=== PATIENT | female | born 1945 | race Caucasian/White ===

== ENCOUNTER 2016-12-07 10:49 | Inpatient (IN) | payer MEDICARE ==
[~2016-12-07 10:49] MED LIST: ACETAMINOPHEN 1000MG/100 ML PREMIX IV ONE; BUPIVACAINE 0.25% W/EPI MPF 30ML VIAL IVP ONE; BUPIVACAINE LIPOSOME 266MG/20ML VIAL IV ONE; CELECOXIB 100 MG CAPSULE PO ONE; FAMOTIDINE 20MG TABLET PO ONE; MECLIZINE 25 MG TABLET PO ONE; METOCLOPRAMIDE 10 MG TABLET PO ONE; TRANEXAMIC ACID 1,000 MG/10 ML ML IV ONE; VANCOMYCIN HCL 1 GM VIAL IVPB ONE; VANCOMYCIN HCL 1,000 MG in 0.9 % SODIUM CHLORIDE 250ML 250 ML IVPB ONE
[2016-12-07 11:56] LABS: ABO GROUP A; ANTIBODY SCREEN NEGATIVE (NEGATIVE); RH TYPE POSITIVE
[2016-12-07] MEDS ORDERED: DIPHENHYDRAMINE HCL IV 50 MG/ML VIAL IVP ONE (14:00)
[2016-12-07] MEDS ORDERED: EPHEDRINE SULFATE 50 MG/ML ML IV ONE (14:00)
[2016-12-07] MEDS ORDERED: FENTANYL PF 100MCG/2ML VIAL IV ONE (14:00)
[2016-12-07] MEDS ORDERED: KETOROLAC 30 MG/ML VIAL IVP ONE (14:00)
[2016-12-07] MEDS ORDERED: MIDAZOLAM HCL 2MG/2ML VIAL IV ONE (14:00)
[2016-12-07] MEDS ORDERED: TRANEXAMIC ACID 1,000 MG/10 ML ML IV ONE (14:00)
[2016-12-07] MEDS ORDERED: PROPOFOL 10 MG/ML VIAL IV ONE (14:00)
[2016-12-07] MEDS ORDERED: ZOLPIDEM TARTRATE 5 MG TABLET PO PRN (15:15)
[2016-12-07] MEDS ORDERED: MAGNESIUM HYDROXIDE 30 ML UDC PO PRN (15:17)
[2016-12-07] MEDS ORDERED: BISACODYL 10 MG SUPP RC PRN (15:20)
[2016-12-07] MEDS ORDERED: AL HYDROX/MAG HYDROX 30ML UD PO PRN (15:24)
[2016-12-07] MEDS ORDERED: METOCLOPRAMIDE HCL 10 MG/2 ML VIAL IVP PRN (15:28)
[2016-12-07] MEDS ORDERED: ONDANSETRON HCL IV 4 MG/2 ML VIAL IVP PRN (15:29)
[2016-12-07] MEDS ORDERED: DEXTROSE 5 % AND 0.9 % NACL 1,000 ML IV SCH (15:30)
[2016-12-07] MEDS ORDERED: ACETAMINOPHEN/CODEINE TABLET PO PRN ×2 (15:32→15:33)
[2016-12-07] MEDS ORDERED: HYDROCODONE/APAP 5/325MG TABLET PO PRN (15:34)
[2016-12-07] MEDS ORDERED: KETOROLAC 30 MG/ML VIAL IVP PRN ×2 (15:37→15:39)
[2016-12-07] MEDS ORDERED: TRAMADOL HCL 50 MG TABLET PO PRN ×2 (15:40→15:42)
[2016-12-07] MEDS ORDERED: ACETAMINOPHEN 325 MG TAB PO PRN (15:44)
[2016-12-07] MEDS ORDERED: MORPHINE SULFATE 5 MG/ML PFS IVP PRN ×3 (15:53→15:55)
[2016-12-07] MEDS: MORPHINE SULFATE 5 MG/ML PFS IVP PRN ×2 (16:04→21:18)
--- NOTE | 2016-12-07 18:24 | Rehab Evaluation ---
Patient Information - Patient Information Diagnosis: Left Knee Arthrosis Ordered Treatment: PT Evaluate and Treat Status: Initial Evaluation Surgery: Yes (L TKA ) Date of Surgery: 12/07/16 History: Detail (Pt. reports history of degenerative change at the left knee, with similar findings regarding the contralateral LE.) Past Med/Elsie Hx Detail: Detail (Pt. does not report relevant orthopedic surgeries prior to TKA.) Past Medical/Surgical Hx: PAST MEDICAL/SURGICAL HISTORY Past Surgical History c scopes c section d and c's x's 3 laparoscopy left big toe surgery left lumpectomy 2006 malignant PMH - Respiratory Hx Respiratory Disorders Yes Hx Bronchitis Yes: just recovering from this Hx Pneumonia Yes: 23 years ago Hx of URI Yes: bronchitis Hx of Productive Cough Yes: only occassonally now PMH - Cardiovascular Hx Cardiovascular Disorders No Exercise Tolerance Good PMH - Neuro Hx Neurological Disorders No PMH - GI Hx Gastrointestinal Disorders Yes PMH - Hx Genitourinary Disorders No Hx Age of Menopause 57 PMH - Endocrine Hx Endocrine Disorders No PMH - Musculoskeletal Hx Musculoskeletal Disorders Yes Hx Arthritis Yes Hx Osteoporosis Yes PMH - Psych Hx Psychiatric Problems Yes Hx Anxiety Yes: regarding surgery PMH - Hematology/Oncology Hx Hematology/Oncology Yes Disorders Hx Cancer Yes: left breast Hx Chemotherapy Yes: in clinical study for 5 years post surgery Hx Radiation Therapy Yes Premorbid Status: Detail (Slowly progressive worsening of sx.) Social History: Detail (Pt. resides in a single story home with one step leading in. Pt. has all aspects of daily living located on the first floor; pt. has a standard bath tub with bench and grab bar. Pt. reports that she will not have to ascend/descend a flight of stairs at the home environment or when attending OP PT in [place], [place].) Precautions: [place], Fall - Time With Patient Total Time Spent With Patient (Min): 60 Treatment Procedures: Detail (Physical Therapy Evaluation Completed. Pt. was left supine with call light available, B IPC, cryo LLE, and nursing was notified of pt.'s status. Pt. was instructed to perform ankle pumps, SLR, quad sets, and glut sets while supine. Pt. remained at 97% O2 from start to finish of evaluation and did not complain of SOB/nausea.) Subjective Information - Subjective Information Per Patient (Pt. reported 3/10 pain at commencement of tx and ended with 2/10 pain via VAS. Pt. denied SOB/nausea throughout evaluation.) Objective Data - Pain Pain Present: Yes Pain Intensity: 2 Pain Scale Used: Numeric (1 - 10) - Mental Status Patient Orientation: Oriented x3 - Visual Perception Appears within normal limits for therapeutic activities - ROM Other (Standardized ROM testing not performed due to recent surgery and dressings. RLE within functional limits. BUE within functional limits.) - Strength/Tone Other (Break testing not performed for left knee flexion and extension. Pt. performed I SLR with LLE and did not report increased pain. RLE 5/5 grossly. BUE 5/5 grossly. L ankle plantarflexion and dorsiflexion 5/5 break testing.) - Coordination Appears within normal limits for therapeutic activities - Bed Mobility Needs Assist (Pt. required min assist x1 with supine<->seated transfer and positioning of the operative LE. Pt. exhibited excellent UE strength and understanding needed to reposition herself in bed.) - Transfers Needs Assist (Pt. required min assist x1 and verbal cueing to appropriately place the involved LE during sit to stand and stand to sit transfer. Pt. maintained quadricep control with uninvolved LE during descent from standing to seated position.) - Balance Balance Sitting: Good (Pt. maintained midline orientation while seated at bedside.) Balance Standing: Fair (Pt. maintained midline orientation while standing at bedside, but deviated when cued to increase BW bore onto involved LE.) - Sensation Intact (Pt. was found appropriate when asked to verbalize therapist's palpation to digit testing and when testing proprioceptive and kinesthetic awareness.) - Gait Detail (Pt. ambulated with front wheeled walker and demonstrated good understanding of LE placement without signs of pivoting; pt. appropriately extended her involved LE with swing phase.) - ADL's/IADL's Detail (Pt. required min assist x2 with bathroom transfer and was successful with void attempt.) - Special Tests No Therapy Assessment - Therapy Assessment Detail (Pt. exhibits LE weakness, ROM deficits, balance impairment, and assistance with transfers. Pt. is expected to pass inpatient PT goals and transition to PT services in [place].) Patient Education - Patient Education Teaching Topic: Disease Process, Equipment Use, Exercise/Activity, Precautions, Risk Factors Response: Return Demonstration Teaching Method: Discussion, Demonstration Teaching Recipient: Patient, Family Barriers To Learning: None Problem List - Problem List Physical Therapy Problem List: Detail (1) LE weakness 2) ROM deficit 3) Balance impairment 4) Assistance with bed mobility and transfer) Goals - Goals Physical Therapy Goals: 1) Pt. will independently ambulate with front wheeled walker for 50 feet or more without gait deviation for safe and efficient ambulation. 2) Pt. will be independent with HEP. 3) Pt. will demonstrated good understanding and be independent with bed mobility and transfers. 4) Pt. will exhibit good standing and seated balance without deviation from midline for safe ADL and transfers. Prognosis - Prognosis Good (Pt. is expected to complete all inpatient PT goals.) Plan - Plan Physical Therapy Plan: Pt. will be seen 1-2x per day for inpatient PT starting on 12-07-16.
[2016-12-07] MEDS: DEXTROSE 5 % AND 0.9 % NACL 1,000 ML IV PRN (19:01)
[2016-12-07] MEDS: FERROUS SULFATE 325 MG TAB PO SCH (22:56)
[2016-12-07] MEDS: DOCUSATE SODIUM 100 MG CAPSULE PO SCH (22:56)
[2016-12-08] MEDS: VANCOMYCIN HCL 1,000 MG in 0.9 % SODIUM CHLORIDE 250ML 250 ML IVPB SCH ×2 (00:16→12:12)
[2016-12-08] MEDS: HYDROCODONE/APAP 5/325MG TABLET PO PRN ×4 (00:57→14:33)
[2016-12-08] MEDS: DEXTROSE 5 % AND 0.9 % NACL 1,000 ML IV PRN (05:31)
[2016-12-08 06:16] LABS: HEMATOCRIT 32.9 % (35.0-47.0); HEMOGLOBIN 10.6 gm/dl (11.6-16.0)
[2016-12-08] MEDS ORDERED: RIVAROXABAN 10 MG TABLET PO SCH (10:00)
[2016-12-08] MEDS: FERROUS SULFATE 325 MG TAB PO SCH (10:10)
[2016-12-08] MEDS: DOCUSATE SODIUM 100 MG CAPSULE PO SCH (10:11)
--- NOTE | 2016-12-08 10:37 | Rehab Evaluation ---
Patient Information - Patient Information Diagnosis: Left Knee Arthrosis Ordered Treatment: OT Evaluate and Treat Status: Initial Evaluation Surgery: Yes (L TKA ) Date of Surgery: 12/07/16 History: Detail (Pt. reports history of degenerative change at the left knee, with similar findings regarding the contralateral LE.) Past Med/Elsie Hx Detail: Detail (Pt. does not report relevant orthopedic surgeries prior to TKA.) Past Medical/Surgical Hx: PAST MEDICAL/SURGICAL HISTORY Past Surgical History c scopes c section d and c's x's 3 laparoscopy left big toe surgery left lumpectomy 2007 malignant PMH - Respiratory Hx Respiratory Disorders Yes Hx Bronchitis Yes: just recovering from this Hx Pneumonia Yes: 23 years ago Hx of URI Yes: bronchitis Hx of Productive Cough Yes: only occassonally now PMH - Cardiovascular Hx Cardiovascular Disorders No Exercise Tolerance Good PMH - Neuro Hx Neurological Disorders No PMH - GI Hx Gastrointestinal Disorders Yes PMH - Hx Genitourinary Disorders No Hx Age of Menopause 57 PMH - Endocrine Hx Endocrine Disorders No PMH - Musculoskeletal Hx Musculoskeletal Disorders Yes Hx Arthritis Yes Hx Osteoporosis Yes PMH - Psych Hx Psychiatric Problems Yes Hx Anxiety Yes: regarding surgery PMH - Hematology/Oncology Hx Hematology/Oncology Yes Disorders Hx Cancer Yes: left breast Hx Chemotherapy Yes: in clinical study for 5 years post surgery Hx Radiation Therapy Yes Premorbid Status: Detail (Slowly progressive worsening of sx.) Social History: Detail (Pt. resides with spouse in a single story home with one step and one hand railing leading in. She has a walk out basement but does not use it often. Pt. has all aspects of daily living located on the first floor; pt. has a standard bath tub with bench and grab bar. Pt. reports that she will not have to ascend/descend a flight of stairs at the home environment or when attending OP PT in [place], [place]. Prior to surgery she was Ind with all ADLs/ IADLs and reports her spouse is able to assist as needed after her return home. She has a sock aid and a shoe horn if needed.) Precautions: [place], Fall - Time With Patient Total Time Spent With Patient (Min): 40 Treatment Procedures: Detail (OT eval low complexity) Subjective Information - Subjective Information Per Patient Objective Data - Pain Pain Present: Yes (11/27 left knee) - Mental Status Patient Orientation: Oriented x3 - Visual Perception Appears within normal limits for therapeutic activities - ROM Within normal limits (Price UE AROM WNL) - Strength/Tone Within normal limits (Price UE MMT WNL) - Coordination Appears within normal limits for therapeutic activities - Bed Mobility Independent (Ind with supine to sit) - Transfers Independent (Ind with sit to stand with walker) - Balance Balance Sitting: Good Balance Standing: Good - Sensation Intact - Gait Detail (Amb in hallway with 2 wheeled walker and SBA) - ADL's/IADL's Detail (Pt reports she is Ind with toileting, nursing has been assisting with dressing.) Therapy Assessment - Therapy Assessment Detail (Reviewed adaptive equipment options and home OT if needed. Pt feels she will not require further OT as spouse is available to assist as needed.) Problem List - Problem List Physical Therapy Problem List: Detail (1) LE weakness 2) ROM deficit 3) Balance impairment 4) Assistance with bed mobility and transfer) Occupational Therapy Problem List: Detail (No specific OT problems identified at this time.) Goals - Goals Physical Therapy Goals: 1) Pt. will independently ambulate with front wheeled walker for 50 feet or more without gait deviation for safe and efficient ambulation. 2) Pt. will be independent with HEP. 3) Pt. will demonstrated good understanding and be independent with bed mobility and transfers. 4) Pt. will exhibit good standing and seated balance without deviation from midline for safe ADL and transfers. Occupational Therapy Goals: No OT goals identified at this time. Prognosis - Prognosis Good Plan - Plan Physical Therapy Plan: Pt. will be seen 1-2x per day for inpatient PT starting on 12-07-16. Occupational Therapy Plan: OT eval completed, no further needs identified at this time.
--- NOTE | 2016-12-08 10:50 | Physical Therapy Tx Note ---
Physical Therapy Tx Note - Treatment Note Tolerated: Good Total Time Spent With Patient: 30 Physical Therapy Tx Note: Detail (The patient had complaints of L knee pain level 3 . The patient was independent with supine to and from sit transfer, hooking R LE under L. The patient was independent with sit to and from stand transfer. The patient ambulated with wheeled walker WBAT on the L LE independently a distance of 65 feet x1. The patient completed the following exercises: seated heel slides, supine heel slides, SLR, ankle pumps , quad sets , gluteal sets and SAQ all x 5 - 8 reps. The patient had complaints of a "hot flash" during exercises. The patient's L knee AROM was measured as flexion 55 degrees seated and extension -12 degrees seated. The patient is progressing well.) Physical Therapy Problem List: Detail (1) LE weakness 2) ROM deficit 3) Balance impairment 4) Assistance with bed mobility and transfer) Physical Therapy Goals: 1) Pt. will independently ambulate with front wheeled walker for 50 feet or more without gait deviation for safe and efficient ambulation. 2) Pt. will be independent with HEP. 3) Pt. will demonstrated good understanding and be independent with bed mobility and transfers. 4) Pt. will exhibit good standing and seated balance without deviation from midline for safe ADL and transfers. Prognosis: Good Physical Therapy Plan: Pt. will be seen 1-2x per day for inpatient PT starting on 12-07-16.
--- NOTE | 2016-12-08 15:40 | Physical Therapy Tx Note ---
Physical Therapy Tx Note - Treatment Note Tolerated: Good (Patient doing extremely well with mobility and gait: worked on bending knee more and pushing off with foot, good weightbearing. Stairs were not difficult for this patient at all.) Total Time Spent With Patient: 25 Physical Therapy Tx Note: Detail (Patient seen in room, up on her way to bathroom with FWW when entered room and patient independent in the bathroom. Ambulated with FWW 50 feet in rincon to stairs, down stairs with CGA only, patient using rail and folded FWW safely, ambulated back up steps then 100 more feet down rincon with FWW with some discomfort in knee. Back to room and sat up in chair to perform exercises with good technique: believe she was able to flex knee 80 degrees. Back into bed independently then therapist re-attached cryocuff and compressive cuffs. Brought patient some gingerale as she was a little nauseated after all activity.) Physical Therapy Problem List: Detail (1) LE weakness 2) ROM deficit 3) Balance impairment 4) Assistance with bed mobility and transfer) Physical Therapy Goals: 1) Pt. will independently ambulate with front wheeled walker for 50 feet or more without gait deviation for safe and efficient ambulation. 2) Pt. will be independent with HEP. 3) Pt. will demonstrated good understanding and be independent with bed mobility and transfers. 4) Pt. will exhibit good standing and seated balance without deviation from midline for safe ADL and transfers. Prognosis: Good (Patient has passed all skills and feels she could go home if the doctor agrees. PT agrees as long as pain controlled.) Physical Therapy Plan: Pt. will be seen 1-2x per day for inpatient PT starting on 12-07-16.
--- NOTE | 2016-12-17 13:42 | Operative Note ---
DATE OF SURGERY: 12/07/2016 PREOPERATIVE DIAGNOSIS: Left knee arthrosis POSTOPERATIVE DIAGNOSIS: Left knee arthrosis. OPERATION: Left total knee arthroplasty. SURGEON: Kirit Ordoñez M.D. Anesthesia: Spinal. Complications: None. Blood Loss: Minimal. Tourniquet Time: 56 minutes. Findings: [id number] medial compartment and patellofemoral compartment arthrosis. Components Placed: 1 gram vancomycin cement, [employer] Journey II Oxinium total knee arthroplasty system size 5 femoral component, size 4 tibial baseplate , a 9-mm thick poly insert, and a 32-mm cemented patella component. INDICATIONS FOR OPERATION: This is a 71-year-old female who is well known to myself. Her is status post [employer] Oxinium knee arthroplasty done years ago, and he wished to have the same thing for his . I explained all risks and benefits in detail for diagnosis and procedures, including but not limited to, infection, nerve injury, vascular injury, persistent pain, numbness and tingling in the knee, periprosthetic fracture, need for resection of arthroplasty should the components become infected or loosened, nerve inury vessel injury, blood clot, amputation, and need for further procedures, need for anticoagulation to prevent blood clot and the risks associated with these medications. All of her questions were answered. The rehabilitation and healing course were outlined. PROCEDURE: Patient placed in the supine position. After spinal anesthesia was induced, the left lower extremity was prepped and draped in sterile fashion. Left knee was prepped again with ChloraPrep after it was draped. Intraoperative time out was performed. The leg was exsanguinated with Esmarch and was reprepped and knee was flexed and tourniquet inflated to 250 mmHg pressure. Next skin and subcutaneous tissue was dissected down. Medial and lateral skin flaps remained. Incised the capsule medially around the medial border of the of the patella to the tibial tubercle. Incised the vastus medialis in line with its fibers in a mid vastus approach. Everted the patella compartment arthrosis. Next, we drilled an intercondylar drill hole and inserted the intramedullary guide sarah with 6 degree cutting block , aligned the distal femoral condyle pinned in place at a +2 mm position, cut to the femoral condyle. We then placed a sizing jig on the distal femoral condyle, sized it to be 5, through the previously placed pinholes we placed a size 5 cutting jig. We dialed in the anterior out so it would come out flush to the cortex without notching and have a good footprint, and we cut that and adjusted until we got a cut there, then pinned it, cut the remaining chamfer cuts in the usual fashion. Next, we placed the trial femoral component, centered it, pinned it, removed osteophytes off the periphery, inserted a resection collet, and then reamed out and box osteotomed out the cruciate bone block. Next, attention was turned to the tibia. We placed the axial line of the jig on the tibia, inserted the spikes in the tibia groove, seated the spikes in the tubercular groove, 2 fingerbreadths distally off the anterior tibial cortex with slight posterior slope. We referenced for a 7 mm cutoff lateral plateau, and we pinned it in place provisionally with 2 anterior posterior pins. Next, we rechecked alignment with a drop sarah, centered on the tibial anatomic axis, and cross pinned the cutting jig, completing its fixation, and then cut the tibia. Next, we removed osteophytes from the posterior femoral condyles using a curved osteotome. We checked flexion and extension gaps. She had symmetric flexion- extension gaps with a 9 mm thick poly insert, to allow for 2-3 mm varus valgus laxity and flexion and extension. Overall alignment cuts in extension . Next with the knee in flexion, we sized the tibial baseplate to a size 4, replaced all trial components, set the rotation of tibial baseplate again in extension, using the alignment sarah centered on the hip joint and ankle joint. Marked with electrocautery dominguez on the anterior tibial cortex off the laser dominguez on the tibial baseplate, and then attention was turned to the patella. Next we measured the patella to be 20 mm, set the cutting jig to 12 mm to allow for a 9.0 thick poly insert. We cut the patella. Remeasured 12 to 13, sized to be 32, medialized as much as possible, drilled 3 peg holes, chamfered off the lateral patella facet, and mixed cement. We did a trial on range of motion. Patella tracked nicely handsfree, had full extension and flexion to 140 degrees, and again, symmetrical flexion-extension gaps. We put the knee in flexion and seated tibial baseplate with the previously- placed electrocautery dominguez, and then pinned it in place, and then reamed out a keel punch and keel hole. Next, we placed a bone plug in the femoral canal hole, placed the drill bit for the keel hole, and then precoated both surfaces, impacted down the tibial component, first removing excess cement, and then the femoral component. Placed the trial tibial insert, held the knee in extension, clamped down the patellar component until the cement hardened. Once the cement hardened, we put the knee in flexion, distracted the knee with bone hook and sponge, irrigated copiously. Removed all excess cement off the posterior capsule. Injected wound, the posterior capsule, and the periosteum medially and laterally with several sticks of 0.5% Marcaine with epi, Exparel, and 2 grams tranexamic acid. We then inserted the real poly insert and verified it was interlocked medially and laterally. Final range of motion and stability were the same. Next, we then closed the capsule in flexion and vastus split using a running numbered 2 quill suture. We closed the skin deep with 2-0 Vicryl and nina. Injected the wound with 0.5% Marcaine with epinephrine. A sterile dressing was applied, celio wrap. The patient received Toradol IV and then tranexamic acid IV preop and postop. Patient tolerated the procedure well. No intraoperative complications. All sponge, needle, and blade counts correct. Sent to Recovery room stable, neurovascularly intact. She will stay 1-2 days and then discharged to an outpatient Rehab Center in [place], [place]. Kirit Ordoñez MD Date Time LEXID
== END 2016-12-08 17:30 | disposition home or self-care (01) | DRG 470 ==
LOC: MEDSURG 10:49
PROVIDERS: ADMIT Orthopaedic Surgery; ATTEND Orthopaedic Surgery
PROC: 0SRD0J9 Replacement of Left Knee Joint with Synthetic Substitute, Cemented, Open Approach (ICD-10-PCS; principal; 2016-12-07 13:00)
DX: M17.12 Unilateral primary osteoarthritis, left knee (principal)
CPT/HCPCS: 85014; 85018; 86850; 86900; 86901; 94760; 97110; 97116; 97165; J1200; J1885; J2405; J7042; J7050